=== PATIENT | female | born 1990 | race Caucasian/White ===

== ENCOUNTER 2018-12-04 14:56 | Emergency (ER) | payer MEDICAID ==
[~2018-12-04] VITALS: Ht 160 cm; Wt 69.9 kg
[2018-12-04 15:08] VITALS: BP_SYST 129
[2018-12-04 15:44] LABS: BASOPHILS % (AUTO) 0.4 % (0.0-2.0); EOSINOPHILS # (AUTO) 0.1 K/uL (0.0-0.4); EOSINOPHILS % (AUTO) 1.6 % (0.0-4.0); HEMATOCRIT 38.7 % (36-48); HEMOGLOBIN 12.9 g/dL (12.0-16.0); LYMPHOCYTES # (AUTO) 1.9 K/uL (1.0-5.5); LYMPHOCYTES % (AUTO) 21.8 % (20.5-51.5); MEAN CORPUSCULAR HEMOGLOBIN 32 pg (27-31); MEAN CORPUSCULAR HGB CONC 33 % (32-36); MEAN CORPUSCULAR VOLUME 96 fL (79.0-98.0); MONOCYTES # (AUTO) 0.3 K/uL (0.0-1.0); MONOCYTES % (AUTO) 3.9 % (1.7-9.3); NEUTROPHILS # (AUTO) 6.3 K/uL (1.8-7.7); NEUTROPHILS % (AUTO) 72.3 % (40.0-70.0); PLATELET COUNT (AUTO) 250 K/uL (130-430); RED BLOOD CELL COUNT(AUTO) 4.04 MIL/uL (4.2-6.2); RED CELL DISTRIBUTION WIDTH 12.7 % (9.0-15.0); WHITE BLOOD COUNT (AUTO) 8.7 K/uL (4.8-10.8)
[2018-12-04 16:01] LABS: CALCIUM 9.4 mg/dL (8.4-11.0); CREATININE 0.49 mg/dL (0.55-1.30); POTASSIUM 4.2 mmol/L (3.5-5.1)
[2018-12-04 16:06] LABS: TOTAL BILIRUBIN 0.7 mg/dL (0.0-1.0)
[2018-12-04 16:59] VITALS: BP_SYST 126
== END 2018-12-04 16:59 | disposition home or self-care (01) ==
LOC: SED 14:56
DX: R19.7 Diarrhea, unspecified (principal)
CPT/HCPCS: 36415; 80053; 81002; 81025; 85025; 99283

== ENCOUNTER 2020-12-05 22:28 | Emergency (ER) | payer MEDICAID ==
[~2020-12-05] VITALS: Ht 160 cm; Wt 73.9 kg
[2020-12-05 22:30] VITALS: BP_SYST 123
[2020-12-06] MEDS ORDERED: KETOROLAC TROMETHAMINE 15 MG VIAL IVP ONE (01:00)
[2020-12-06] MEDS ORDERED: NACL 0.9% 1,000 ML IV ONE (01:00)
[2020-12-06 01:08] LABS: BASOPHILS % (AUTO) 0.4 % (0.0-2.0); EOSINOPHILS # (AUTO) 0.3 K/uL (0.0-0.4); EOSINOPHILS % (AUTO) 4.3 % (0.0-4.0); HEMATOCRIT 32.9 % (36-48); HEMOGLOBIN 11.4 g/dL (12.0-16.0); LYMPHOCYTES # (AUTO) 2.9 K/uL (1.0-5.5); LYMPHOCYTES % (AUTO) 45.9 % (20.5-51.5); MEAN CORPUSCULAR HEMOGLOBIN 33 pg (27-31); MEAN CORPUSCULAR HGB CONC 35 % (32-36); MEAN CORPUSCULAR VOLUME 94 fL (79.0-98.0); MONOCYTES # (AUTO) 0.5 K/uL (0.0-1.0); MONOCYTES % (AUTO) 7.3 % (1.7-9.3); NEUTROPHILS # (AUTO) 2.6 K/uL (1.8-7.7); NEUTROPHILS % (AUTO) 42.1 % (40.0-70.0); PLATELET COUNT (AUTO) 225 K/uL (130-430); RED CELL DISTRIBUTION WIDTH 12.6 % (9.0-15.0); WHITE BLOOD COUNT (AUTO) 6.2 K/uL (4.8-10.8)
[2020-12-06 01:16] LABS: INR 0.9 (0.8-1.2); PROTHROMBIN TIME 9.3 SECS (9.5-12.5)
[2020-12-06 01:36] LABS: CALCIUM 9.6 mg/dL (8.4-11.0); CREATININE 0.79 mg/dL (0.55-1.30); POTASSIUM 3.9 mmol/L (3.5-5.1)
[2020-12-06 01:42] LABS: ALBUMIN 3.6 g/dL (3.4-4.8); TOTAL BILIRUBIN 0.2 mg/dL (0.0-1.0)
[2020-12-06 01:59] LABS: CLARITY/URINE HAZY (CLEAR); COLOR,URINE YELLOW (YELLOW)
[2020-12-06 02:01] LABS: BILIRUBIN,URINE NEGATIVE (NEGATIVE); BLOOD, URINE 1+ (NEGATIVE); GLUCOSE,URINE NEGATIVE (NEGATIVE); KETONES,URINE NEGATIVE (NEGATIVE); LEUKOCYTE ESTERASE ,URINE NEGATIVE (NEGATIVE); NITRITE, URINE NEGATIVE (NEGATIVE); PROTEIN URINE NEGATIVE (NEGATIVE); UROBILINOGEN,URINE 0.2 (0.2-1.0)
[2020-12-06 02:02] LABS: WBC,URINE 0-3 /HPF (0-3)
[2020-12-06 02:03] LABS: BACTERIA,URINE None Seen /HPF (None Seen); MUCUS,URINE 1+ /LPF (None Seen); URINE AMORPHOUS PHOSPHATES 3+ /HPF (None Seen)
[2020-12-06 03:08] VITALS: BP_SYST 132
== END 2020-12-06 03:08 | disposition home or self-care (01) ==
LOC: SED 22:28
DX: A05.9 Bacterial foodborne intoxication, unspecified (principal)
CPT/HCPCS: 36415; 80053; 81000; 81025; 82150; 83690; 85025; 85610; 96361; 96374; 99283; J1885; J7030